=== PATIENT | female | born 1955 | race Asian ===

== ENCOUNTER 2020-04-16 05:59 | Emergency (ER) | payer OTHER ==
[~2020-04-16] VITALS: Ht 160 cm; Wt 54.4 kg
[2020-04-16 06:06] VITALS: Ht 160 cm; Wt 54.4 kg
[2020-04-16 07:17] LABS: BASOPHIL % 0.2 % (0-2); PLATELET COUNT 194 x10^3mcL (130-400)
[2020-04-16 07:24] LABS: microscopic required? YES; urine erythrocyte TRACE (NEGATIVE)
[2020-04-16 07:27] LABS: CALCIUM 9.1 mg/dL (8.5-10.1); CARBON DIOXIDE 24.2 mmol/L (21-32); CHLORIDE SERUM 100 mmol/L (98-107); CREATININE SERUM 0.5 mg/dL (0.6-1.0); GFR1 > 60 mL/min; GLUCOSE SERUM 110 mg/dL (74-106); POTASSIUM SERUM 3.6 mmol/L (3.5-5.1); SODIUM SERUM 134 mmol/L (136-145)
[2020-04-16 07:32] LABS: ALBUMIN 3.4 g/dL (3.4-5.0); ALKALINE PHOSPHATASE 76 U/L (46-116); ALT/SGPT 28 U/L (14-59); AMYLASE 54 U/L (25-115); AST/SGOT 24 U/L (15-37); LIPASE 97 IU/L (73-393); TOTAL PROTEIN, SERUM 8.2 g/dL (6.4-8.2)
[2020-04-16 07:52] LABS: AMPHETAMINE QUAL UR NONE DETECTED (See below)
[2020-04-16 09:45] VITALS: BP 99/53
== END 2020-04-16 09:45 | disposition home or self-care (01) ==
LOC: ED 05:59
PROVIDERS: Emergency Medicine
DX: N39.0 Urinary tract infection, site not specified (principal); R50.9 Fever, unspecified
CPT/HCPCS: J1885; J1956; J7030; Q0092